=== PATIENT | female | born 2000 | race Caucasian/White ===

== ENCOUNTER 2022-04-04 13:24 | Emergency (ER) | payer SELFPAY ==
[2022-04-04 14:25] LABS: SARS-CoV-2 NAA Rapid Test Not Detected (NotDetected)
== END 2022-04-04 15:31 | disposition home or self-care (01) ==
LOC: CSHERS 13:24
DX: J20.9 Acute bronchitis, unspecified (principal); Z20.822 Contact with and (suspected) exposure to COVID-19
CPT/HCPCS: 99283

== ENCOUNTER 2022-11-02 16:10 | Emergency (ER) | payer OTHER ==
[2022-11-02 17:30] LABS: SARS-CoV-2 NAA Rapid Test Not Detected (NotDetected)
== END 2022-11-02 18:49 | disposition home or self-care (01) ==
LOC: CSHERS 16:10
DX: B34.9 Viral infection, unspecified (principal); Z20.822 Contact with and (suspected) exposure to COVID-19
CPT/HCPCS: 99284

== ENCOUNTER 2022-12-09 15:35 | Emergency (ER) | payer OTHER ==
[2022-12-09] MEDS ORDERED: Ondansetron ODT 4 MG TAB ONE (16:17)
[2022-12-09 17:03] LABS: SARS-CoV-2 NAA Rapid Test Not Detected (NotDetected)
== END 2022-12-09 17:40 | disposition home or self-care (01) ==
LOC: CSHERS 15:35
DX: B34.9 Viral infection, unspecified (principal); Z20.822 Contact with and (suspected) exposure to COVID-19
CPT/HCPCS: 99283; Q0162

== ENCOUNTER 2023-04-11 14:51 | Emergency (ER) | payer OTHER, SELFPAY ==
[2023-04-11] MEDS ORDERED: Cyclobenzaprine 10 MG TAB ONE (17:05)
== END 2023-04-11 17:03 | disposition home or self-care (01) ==
LOC: CSHERS 14:51
DX: M54.50 Low back pain, unspecified (principal)
CPT/HCPCS: 99283

== ENCOUNTER 2023-09-23 14:34 | Emergency (ER) | payer OTHER ==
[2023-09-23 15:59] LABS: #Basophils 0.04 10x3/uL (0.0-0.2); #Eosinphils 0.05 10x3/uL (0.0-0.5); #Monocytes 0.36 10x3/uL (0.0-1.1); #Neutrophils 5.14 10x3/uL (1.5-8.4); %Basophils 0.5 % (0.0-2.0); %Eosinophils 0.6 % (0.0-6.0); %Lymphocytes 27.4 % (18.0-47.0); %Monocytes 4.7 % (0.0-10.0); %Neutrophils 66.4 % (40.0-75.0); Hematocrit 37.6 % (34.9-44.5); Mean Corpuscular HGB CONC 34.6 g/dL (32.0-36.0); Mean Corpuscular Hemoglobin 31.9 pg (27.0-33.0); Mean Corpuscular Volume 92.2 fL (81.6-98.3); RBC Distribution Width 12.1 % (11.5-14.5); Red Blood Cell (RBC) Count 4.08 10x6/uL (3.90-5.03); White Blood Cell (WBC) Count 7.7 10x3/uL (3.5-10.5)
[2023-09-23] MEDS ORDERED: Ondansetron ODT 4 MG TAB ONE (16:00)
[2023-09-23] MEDS ORDERED: Meclizine HCl 25 MG TAB ONE (16:00)
[2023-09-23 16:01] LABS: Mean Platelet Volume 10.2 fL (7.4-10.4); Platelet Count 137 10x3/uL (150-450)
[2023-09-23 16:05] LABS: ALT (SGPT) 18 U/L (8-55); AST (SGOT) 14 U/L (5-34); Albumin 3.5 g/dL (3.5-5.0); Alkaline Phosphatase 43 U/L (40-110); Anion Gap 10 mmol/L (10-20); BUN (Urea Nitrogen) 11 mg/dL (7.0-18.7); Bilirubin, Total 0.4 mg/dL (0.2-1.2); Calc. Creatinine Clearance 0 mL/min (70-130); Calcium 9.2 mg/dL (7.8-10.44); Carbon Dioxide 25 mmol/L (22-29); Chloride 107 mmol/L (98-107); Estimated GFR 125; Globulin 2.1 g/dL (2.4-3.5); Glucose 99 mg/dL (70-105); Protein, Total 5.6 g/dL (6.0-8.3); Sodium 138 mmol/L (136-145)
[2023-09-23] MEDS ORDERED: Acetaminophen 500 MG TAB ONE (16:53)
[2023-09-23 17:21] LABS: Bilirubin Neg (Negative); Blood, Urine Negative (Negative); Clarity Slightly Cloudy (Clear); Glucose, Urine (Dipstick) Normal (Negative); Ketone, Urine Negative (Negative); Leukocyte 25 (Negative); Nitrite Negative (Negative); Protein, Urine (Dipstick) 15 mg/dl (Neg-Trace); Specific Gravity, Urine 1.025 (1.005-1.030)
[2023-09-23 17:29] LABS: CAUTI Indications for Culture Dysuria,urgency,freq; RBC/HPF 0-3 HPF (0-3)
[2023-09-23 17:31] LABS: Bacteria/HPF 2+ HPF (None Seen); Mucous/LPF 3+ LPF (<2+)
[2023-09-23 17:34] LABS: Urine Culture Reflex No No
== END 2023-09-23 18:00 | disposition home or self-care (01) ==
LOC: CSHERS 14:34
DX: R55 Syncope and collapse (principal); S09.90XA Unspecified injury of head, initial encounter; R82.71 Bacteriuria; W22.8XXA Striking against or struck by other objects, initial encounter; Y92.512 Supermarket, store or market as the place of occurrence of the external cause
CPT/HCPCS: 36415; 70450; 80053; 81001; 85025; 93005; Q0162

== ENCOUNTER 2024-01-11 10:22 | Emergency (ER) | payer OTHER ==
[2024-01-11] MEDS ORDERED: HYDROcodone/Acetaminophen 5/325 mg Tablet ONE (10:52)
[2024-01-11] MEDS ORDERED: Etomidate 40 MG (20 mL) VIAL ONE (13:18)
[2024-01-11] MEDS ORDERED: KETAMINE 100 MG/ML (5ML VIAL) ONE (14:02)
[2024-01-11] MEDS ORDERED: Ondansetron PF 4 MG/2 ML Vial ONE (14:38)
== END 2024-01-11 15:44 | disposition home or self-care (01) ==
LOC: CSHERS 10:22
DX: S43.102A Unspecified dislocation of left acromioclavicular joint, initial encounter (principal); W18.2XXA Fall in (into) shower or empty bathtub, initial encounter
CPT/HCPCS: 23650; 71045; 96374; 96375; 99152; J2405

== ENCOUNTER 2024-02-29 15:39 | Emergency (ER) | payer OTHER ==
[2024-02-29] MEDS ORDERED: Benzonatate 100 MG CAP ONE (16:55)
[2024-02-29] MEDS ORDERED: Ondansetron ODT 4 MG TAB ONE (16:55)
[2024-02-29] MEDS ORDERED: Ipratropium/Albuterol 3 ML NEB ONE (17:00)
== END 2024-02-29 18:26 | disposition home or self-care (01) ==
LOC: CSHERS 15:39
DX: J06.9 Acute upper respiratory infection, unspecified (principal)
CPT/HCPCS: 71045; 87428; 94640; J7620; Q0162

== ENCOUNTER 2024-12-31 20:38 | Emergency (ER) | payer MEDICAID, SELFPAY ==
[2024-12-31] MEDS ORDERED: Ondansetron PF 4 MG/2 ML Vial ONE (22:21)
[2024-12-31] MEDS ORDERED: Ketorolac Tromethamine 30 MG (1 mL) VIAL ONE (22:22)
[2024-12-31 22:30] LABS: #Basophils 0.04 10x3/uL (0.0-0.2); #Eosinophils 0.05 10x3/uL (0.0-0.5); #Monocytes 0.57 10x3/uL (0.0-1.1); #Neutrophils 5.99 10x3/uL (1.5-8.4); %Basophils 0.4 % (0.0-2.0); %Eosinophils 0.5 % (0.0-6.0); %Lymphocytes 34.1 % (18.0-47.0); %Monocytes 5.6 % (0.0-10.0); %Neutrophils 59.0 % (40.0-75.0); Hematocrit 40.6 % (34.9-44.5); Hemoglobin 13.7 g/dL (12.0-15.5); Mean Corpuscular Hemoglobin 30.5 pg (27.0-33.0); Mean Corpuscular Volume 90.4 fL (81.6-98.3); Platelet Count 205 10x3/uL (150-450); Red Blood Cell (RBC) Count 4.49 10x6/uL (3.90-5.03); White Blood Cell (WBC) Count 10.15 10x3/uL (3.5-10.5)
[2024-12-31 22:43] LABS: ALT (SGPT) 59 U/L (Less than 34); AST (SGOT) 30 U/L (11-34); Albumin 4.4 g/dL (3.1-4.5); Alkaline Phosphatase 48 U/L (40-110); Anion Gap 11 mmol/L (10-20); BUN (Urea Nitrogen) 10 mg/dL (7.0-18.7); Bilirubin, Total 1.2 mg/dL (0.3-1.2); Calc. Creatinine Clearance 0 mL/min (70-130); Calcium 9.3 mg/dL (7.8-10.44); Carbon Dioxide 23 mmol/L (22-29); Chloride 107 mmol/L (98-107); Globulin 2.3 g/dL (2.4-3.5); Glucose 88 mg/dL (70-105); Lipase 41 U/L (8-78); Potassium 4.1 mmol/L (3.5-5.1); Sodium 137 mmol/L (136-145)
[2024-12-31 22:44] LABS: Glucose, Urine (Dipstick) Normal (Negative); Leukocyte 100 (Negative); Pregnancy Test - Urine (BHCG) Negative (Negative); Pregu Control Background? CLEAR/WHITE (CLR/WHITE); Pregu Control Bar Appear? YES (CONTROL BAR); Protein, Urine (Dipstick) Negative (Neg-Trace); Specific Gravity, Urine 1.015 (1.005-1.030)
[2024-12-31 22:55] LABS: Bacteria/HPF None Seen HPF (None Seen); CAUTI Indications for Culture Pelvic or flank pain; RBC/HPF None Seen HPF (0-3); WBC/HPF 0-3 HPF (0-3)
[2024-12-31 22:57] LABS: Urine Culture Reflex No No
== END 2025-01-01 02:12 | disposition home or self-care (01) ==
LOC: CSHERS 20:38
DX: N39.0 Urinary tract infection, site not specified (principal)
CPT/HCPCS: 36415; 74177; 76705; 80053; 81001; 81025; 83690; 85025; 96374; 96375; J1885

== ENCOUNTER 2025-01-23 10:51 | Emergency (ER) | payer SELFPAY | END 2025-01-23 13:11 | disposition home or self-care (01) | LOC: CSHERS 10:51 | DX: S50.02XA Contusion of left elbow, initial encounter (principal); S49.92XA Unspecified injury of left shoulder and upper arm, initial encounter; W18.30XA Fall on same level, unspecified, initial encounter | CPT/HCPCS: 99283 ==

== ENCOUNTER 2025-02-19 02:28 | Emergency (ER) | payer SELFPAY ==
[2025-02-19 02:52] LABS: #Basophils 0.04 10x3/uL (0.0-0.2); #Eosinophils 0.04 10x3/uL (0.0-0.5); #Monocytes 0.40 10x3/uL (0.0-1.1); #Neutrophils 4.59 10x3/uL (1.5-8.4); %Basophils 0.5 % (0.0-2.0); %Eosinophils 0.5 % (0.0-6.0); %Lymphocytes 33.9 % (18.0-47.0); %Monocytes 5.2 % (0.0-10.0); %Neutrophils 59.8 % (40.0-75.0); Hematocrit 37.3 % (34.9-44.5); Hemoglobin 13.0 g/dL (12.0-15.5); Mean Corpuscular Hemoglobin 30.8 pg (27.0-33.0); Mean Corpuscular Volume 88.4 fL (81.6-98.3); Platelet Count 160 10x3/uL (150-450); Red Blood Cell (RBC) Count 4.22 10x6/uL (3.90-5.03); White Blood Cell (WBC) Count 7.68 10x3/uL (3.5-10.5)
[2025-02-19 03:04] LABS: BHCG - Serum Negative (NEGATIVE); Pregs Control Background? CLEAR/WHITE (CLR/WHITE); Pregs Control Bar Appear? YES (CONTROL BAR)
[2025-02-19 03:11] LABS: Troponin I Less than 0.010 ng/mL (< 0.028)
[2025-02-19 03:13] LABS: ALT (SGPT) 28 U/L (Less than 34); AST (SGOT) 25 U/L (11-34); Albumin 4.0 g/dL (3.1-4.5); Alkaline Phosphatase 46 U/L (40-110); Anion Gap 10 mmol/L (10-20); BUN (Urea Nitrogen) 9 mg/dL (7.0-18.7); Bilirubin, Total 1.8 mg/dL (0.3-1.2); Calc. Creatinine Clearance 0 mL/min (70-130); Calcium 8.7 mg/dL (7.8-10.44); Carbon Dioxide 23 mmol/L (22-29); Chloride 107 mmol/L (98-107); Globulin 1.9 g/dL (2.4-3.5); Glucose 83 mg/dL (70-105); Magnesium 2.0 mg/dL (1.6-2.6); Potassium 3.4 mmol/L (3.5-5.1); Sodium 137 mmol/L (136-145)
== END 2025-02-19 04:38 | disposition home or self-care (01) ==
LOC: CSHERS 02:28
DX: R55 Syncope and collapse (principal); M40.50 Lordosis, unspecified, site unspecified; R29.700 NIHSS score 0; W19.XXXA Unspecified fall, initial encounter; W22.8XXA Striking against or struck by other objects, initial encounter; Y99.0 Civilian activity done for income or pay
CPT/HCPCS: 70450; 71045; 72125; 80053; 83735; 84484; 84703; 85025; 93005